=== PATIENT | female | born 1955 | race Caucasian/White ===

== ENCOUNTER → 2019-02-18 | Outpatient (CLI) | payer OTHER ==
[2015-03-13 11:00] VITALS: BP 151/92
[~2019-02-18] MED LIST: ALPR0.25 PO; AMOX1TAB61 PO; DOCU-109 PO
--- NOTE | 2019-02-18 16:35 | KCIC ---
EXAM: Lumbar spine, 6 views. HISTORY: Pain. COMPARISON: None. FINDINGS: Frontal, lateral, bilateral oblique and coned sacral views of the lumbar spine are obtained. There is a transitional lumbosacral segment, considered a partially sacralized L5 segment with rudimentary L5-S1 disc for this dictation. There is endplate remodeling at multiple levels. There is facet arthropathy predominantly at the lumbosacral junction. There is no fracture. IMPRESSION: 1. Multilevel degenerative endplate remodeling. 2. Facet arthropathy predominantly at the lumbosacral junction. 3. Transitional lumbosacral segment, a normal variant. Electronically signed by: Kay Rojas MD (02/18/2019 4:32 PM) [id number]
== END | disposition home or self-care (01) ==
LOC: KCIC 15:57
PROVIDERS: ATTEND Family Medicine
DX: M51.36 Other intervertebral disc degeneration, lumbar region (principal); M12.88 Other specific arthropathies, not elsewhere classified, other specified site
CPT/HCPCS: 72110